=== PATIENT | male | born 1955 | race African-American/Black ===

== ENCOUNTER 2023-01-09 05:19 | Day surgery (SDC) | payer MEDICARE, OTHER ==
[~2023-01-09] VITALS: Ht 177.8 cm; Wt 99.0 kg
[~2023-01-09 05:19] MED LIST: ASPIRIN E.C. 8181 MG PO; FISH OIL 1000MG1 CAP PO; HYZAAR 50-12.1 UDTAB PO; NATURAL IRON65 MG; PEPCID 20MG TAB20 MG PO; VITAMIN C500 MG PO; ZYRTEC 10MG10 MG PO
[2023-01-09 05:55] VITALS: BP 144/95; PULSE 75; TEMP 97.2
[2023-01-09] MEDS ORDERED: OXY IR5 MG PO (06:10)
[2023-01-09] MEDS ORDERED: DEMADEX 20MG20 M1 PO (06:11)
[2023-01-09] MEDS ORDERED: ZANAFLEX2 MG PO (06:12)
[2023-01-09] MEDS ORDERED: ASPIRIN 81M81 MG/TA2 PO (06:14)
[2023-01-09] MEDS ORDERED: LIPITOR 80MG80 MG PO (06:18)
[2023-01-09] MEDS ORDERED: COZAAR 25MG25 MG/TAB PO (06:41)
--- NOTE | 2023-01-09 07:09 | NUR ---
PATIENT TO BAY 7 VIA WALKER. ALERT AND ORIENTED X4. STATED UNDERSTANDING OF PROCEDURE. CONSENTS SIGNED. ASSESSMENT COMPLETED. 20G IV STARTED IN LEFT AC BY MARIAN LAKHANI. LR INFUSING WITHOUT DIFFICULTIES. WARM BLANKET PROVIDED. NO FURTHER NEEDS NOTED. RESTING IN COT. CALL LIGHT IN REACH. FRIEND, ED, AT BEDSIDE.
[2023-01-09 07:16] VITALS: BP 114/72; PULSE 83; TEMP 98.3
[2023-01-09 07:31] VITALS: BP 119/74; PULSE 84
[2023-01-09 07:46] VITALS: BP 121/75; PULSE 76
[2023-01-09 08:01] VITALS: BP 141/88; PULSE 76
--- NOTE | 2023-01-09 08:20 | NUR ---
0716 RETURNS TO ROOM 7 PER CART. DROWSY, AROUSES TO VERBAL STIMULI. RESP SPONTANEOUS, UNLABORED. HOB ELEVATED 30 DEGREES. VITAL SIGNS OBTAINED. DENIES DISCOMFORT AT THIS TIME. NEURO/CIRC CHECKS LEFT LOWER EXTREMITY INTACT. PULSES +2, CAP REFILL <3 SECONDS. CALL LIGHT AT SIDE. FRIEND IN ROOM 0731 AWAKE, ALERT. REPORTS MILD DISCOMFORT LEFT KNEE. DENIES NEED FOR PAIN MED 0746 HOB ELEVATED 70 DEGREES. TOLERATES PO JUICE WITHOUT NAUSEA 0755 DISCHARGE INSTRUCTIONS REVIEWED. PATIENT VERBALIZES UNDERSTANDING. COPY PROVIDED IN DISCHARGE FOLDER 0842 SITS ON EDGE OF BED. DRESSES SELF
== END 2023-01-09 08:20 | disposition home or self-care (01) ==
LOC: SDCO 05:19
DX: M24.662 Ankylosis, left knee (principal); T84.85 Stenosis due to internal orthopedic prosthetic devices, implants and grafts; I77.1 Stricture of artery; M96.89 Other intraoperative and postprocedural complications and disorders of the musculoskeletal system; M21.372 Foot drop, left foot; Z96.652 Presence of left artificial knee joint; Z98.890 Other specified postprocedural states
CPT/HCPCS: J2704; J7120